=== PATIENT | male | born 1965 | race African-American/Black ===

== ENCOUNTER 2018-06-04 22:19 | Emergency (ER) | payer MEDICAID ==
[~2018-06-04] VITALS: Ht 185.4 cm; Wt 136.1 kg
[2018-06-04 22:23] VITALS: Ht 185.4 cm; Wt 136.1 kg
[2018-06-04] MEDS ORDERED: DIAMOX PO (22:25)
[2018-06-04] MEDS ORDERED: EYE DROPS (22:25)
[2018-06-04] MEDS ORDERED: NORCO 10-325 TA1 TAB PO (23:35)
[2018-06-05 00:39] VITALS: BP 138/88
== END 2018-06-05 00:41 | disposition home or self-care (01) ==
LOC: D.ER 22:19
DX: H40.052 Ocular hypertension, left eye (principal); F17.200 Nicotine dependence, unspecified, uncomplicated

== ENCOUNTER 2018-08-13 08:48 | Emergency (ER) | payer MEDICAID ==
[~2018-08-13] VITALS: Ht 185.4 cm; Wt 143.2 kg
[~2018-08-13 08:48] MED LIST: DIAMOX PO; EYE DROPS; NORCO 10-325 TA1 TAB PO
[2018-08-13 08:58] VITALS: Ht 185.4 cm; Wt 143.2 kg
[2018-08-13 09:48] LABS: ALBUMIN 2.9 g/dL (3.4-5.0); ALKALINE PHOSPHATASE 72 U/L (46-116); ALT (SGPT) 32 U/L (10-68); APPEARANCE CLEAR (CLEAR); BILIRUBIN - TOTAL 0.99 mg/dL (0.2-1.3); CALC OSMOLALITY 277 mosm/kg (275-300); CALCIUM 8.4 mg/dL (8.5-10.1); CARBON DIOXIDE 26.7 mmol/L (21.0-32.0); CHLORIDE - SERUM 102 mmol/L (98-107); COLOR YELLOW (YELLOW); CREATININE - SERUM 1.3 mg/dL (0.6-1.3); GLUCOSE 151 mg/dL (74-106); NITRITE NEGATIVE (NEGATIVE); POTASSIUM - SERUM 3.8 mmol/L (3.5-5.1); PROTEIN TRACE mg/dL (NEGATIVE); SODIUM 137 mmol/L (136-145); SPECIFIC GRAVITY 1.005 (1.005-1.020); UREA NITROGEN 14 mg/dL (7-18); eGFR NON AFRICAN AMERICAN 61 mL/min (90-120)
[2018-08-13 09:49] LABS: BASOPHILS 0.1 % (0-2); BILIRUBIN NEGATIVE (NEGATIVE); EOSINOPHILS 0.1 % (0-7); EPITHELIAL CELLS OCC /hpf (0-5); GLUCOSE NEGATIVE (NEGATIVE); HEMATOCRIT 44.4 % (42.0-54.0); HEMOGLOBIN 15.9 g/dL (13.5-17.5); IMMATURE GRANULOCYTES 0.4 % (0-5); KETONE NEGATIVE (NEGATIVE); LYMPHOCYTES 8.5 % (15-50); MCH 32.1 pg (26.0-34.0); MCHC 35.8 g/dL (31.0-37.0); MCV 89.5 fL (80.0-100.0); MEAN PLATELET VOLUME 11.3 fL (7.4-10.4); MONOCYTES 7.7 % (2-11); MUCUS <1+ /lpf (NONE SEEN); NEUTROPHILS 83.2 % (40-80); PLATELET COUNT 137 10x3/uL (130-400); RBC 4.96 10x6/uL (4.20-6.10); UROBILINOGEN NORMAL (NORMAL); WBC 7.7 10x3/uL (4.8-10.8); WHITE CELLS - URINE OCC /hpf (0-5)
[2018-08-13 09:51] LABS: AMYLASE - SERUM 72 U/L (25-115); LIPASE 78 U/L (73-393); TROPONIN-I < 0.017 ng/mL (0.000-0.060)
[2018-08-13] MEDS ORDERED: FLOMAX0.4 MG PO (10:24)
[2018-08-13] MEDS ORDERED: NORCO 7.5/325 T1 TA1 PO (10:24)
[2018-08-13] MEDS ORDERED: PHENERGAN25 M1 PO (10:24)
[2018-08-13 10:34] VITALS: BP 131/88
== END 2018-08-13 10:39 | disposition home or self-care (01) ==
LOC: D.ER 08:48
PROVIDERS: Emergency Medicine
DX: R31.9 Hematuria, unspecified (principal); N20.1 Calculus of ureter; R19.7 Diarrhea, unspecified; R10.31 Right lower quadrant pain